=== PATIENT | male | born 1960 | race Caucasian/White ===

== ENCOUNTER 2021-05-20 10:40 | Inpatient (IN) | payer SELFPAY ==
[2021-05-20] VITALS (35 sets, daily range): BP systolic 104–180; BP diastolic 56–91; PULSE 53–78; RESP 10–21; TEMP 36.1–36.7; O2SAT 91–100; BMI 30.4; BMI 29.1
--- NOTE | 2021-05-20 10:45 | CT_ITS ---
STUDY: CT HEAD STROKE PROTOCOL W/O CONTRAST INJECTION REASON FOR EXAM: Male, 61 years old. Neuro deficit, acute, stroke suspected RADIATION DOSAGE (If Supplied By Facility): CTDIvol = ( 44.99 ) mGy, DLP = ( and 46.73 ) mGycm TECHNIQUE: Transaxial CT imaging of the brain was performed without administration of intravenous contrast material. Individualized dose optimization techniques were used for this CT. COMPARISON: No relevant priors. FINDINGS: Normal soft tissue structures. Normal calvarium. There is mild cerebral atrophy with widening of the extra-axial spaces and ventricular dilatation. Normal white matter tracts of the cerebral hemispheres. Normal basal ganglia and thalami. Normal brainstem. Normal cerebellum. There is no intracranial hemorrhage. There are no findings of an acute ischemic infarction. Atherosclerotic calcification of the cavernous portions of the internal carotid arteries bilaterally. Normal visualized paranasal sinuses. CT/STROKE Brain/Head without Cont IMPRESSION: Chronic involutional changes of the brain. N.B. : The above Results were Read Back by Alirio Ryan MD to Samuel Mullen and understanding confirmed on 05/20/2021 10:55:42 (ET). Electronically Signed: Alirio Ryan MD at 10:56 EST , Service support ,
--- NOTE | 2021-05-20 10:45 | EKG12_ITS ---
Test Reason : STROKE ALERT Blood Pressure : / mmHG Vent. Rate : 065 BPM Atrial Rate : 065 BPM P-R Int : 166 ms QRS Dur : 088 ms QT Int : 390 ms P-R-T Axes : 052 005 038 degrees QTc Int : 405 ms Normal sinus rhythm Normal ECG Confirmed by ART MITCHELL, IMANI ([id number]), editor farm journal DUNCAN EDEN ([id number]) on 05/21/2021 1:41:42 PM Referred By: JENNIFER Confirmed By:RIC CORDOVA MD
--- NOTE | 2021-05-20 10:46 | CT_ITS ---
STUDY: CTA HEAD AND NECK WITH CONTRAST REASON FOR EXAM: Male, 61 years old. Neuro deficit, acute, stroke suspected RADIATION DOSAGE (If Supplied By Facility): CTDIvol = ( 19.78 ) mGy, DLP = ( 779.07 ) mGycm TECHNIQUE: CT angiography was performed with a multi-detector CT scanner. Data acquisition was obtained from the skull base through the vertex following intravenous administration of IV 100mL [id number]-[id number]. MIP images were reconstructed from the axial data set. Post-processing of the angiographic images was performed, with multiplanar reformation and 3D reconstruction. Individualized dose optimization techniques were used for this CT. COMPARISON: No relevant priors. FINDINGS: Normal bilateral petrous carotid arteries. There is calcified plaque formation of the right cavernous carotid artery, without a cross-sectional luminal stenosis. There is calcified plaque formation of the left cavernous carotid artery, without a cross-sectional luminal stenosis. Normal right A1 segments of the anterior cerebral artery. Normal left A1 segments of the anterior cerebral artery. Normal intact anterior communicating artery (ACOM). Normal bilateral A2 segments of the anterior cerebral arteries. Normal right M1 and M2 segments of the middle cerebral arteries, with a normal M1 bifurcation. Normal left M1 and M2 segments of the middle cerebral arteries, with a normal M1 bifurcation. Normal right posterior communicating artery (PCOM). Normal left posterior communicating artery (PCOM). Normal bilateral vertebral arteries. Normal basilar artery with a normal basilar bifurcation. The visualized bilateral superior cerebellar (SCA) arteries are normal. Normal bilateral P1, P2 and visualized P3 segments of the posterior cerebral arteries. There is no demonstrated aneurysm of the [place]. There is no demonstrated abnormality of the visualized brain. AORTIC ARCH: Normal visualized aortic arch. Normal origins of the brachiocephalic, left common carotid, and left subclavian arteries. RIGHT CAROTID ARTERIES: Normal right common carotid artery (CCA). Normal right common carotid bulb. There is mild atherosclerotic plaque formation of the origin of the right internal carotid artery with less than 50% cross sectional diameter stenosis. Normal visualized cervical portion of the right internal carotid artery. Normal origin of the right external carotid artery (ECA). LEFT CAROTID ARTERIES: Normal left common carotid artery (CCA). Normal left common carotid bulb. There is mild atherosclerotic plaque formation of the origin of the left internal carotid artery with less than 50% cross sectional diameter stenosis. Normal visualized cervical portion of the left internal carotid artery. Normal origin of the left external carotid artery (ECA). VERTEBRAL ARTERIES: Normal bilateral vertebral arteries. CT/STROKE CTA Head AND Neck W/Con IMPRESSION: Minimal calcific plaque at the origin of the right and left internal carotid arteries. N.B. : The above Results were Read Back by Alirio Ryan MD to Samuel Mullen and understanding confirmed on 05/20/2021 11:19:52 (ET). Electronically Signed: Alirio Ryan MD at 11:21 EST , Service support ,
--- NOTE | 2021-05-20 10:47 | ED.VIS.STROK ---
HPI History of Present Illness Chief Complaint: Neuro S/Sx Informant: patient and EMS Onset/Context/Timing Onset: Today Context: Sudden Onset Timing: Continuous Current Severity: Moderate Maximum Severity: Moderate Associated Symptoms Associated Symptoms: Negative for Headache, Nausea, Vomiting and Chest Pain Narrative Narrative: 61-year-old male history of hypertension reported no prior stroke or cardiac disease. Around 10 AM this morning he started having right-sided weakness and numbness and speech difficulties. The right arm and leg seem to be improving. His speech is not. Prior similar symptoms: No Recent Illness/Hospitalization: No PFSH PFSH Medical History HTN (hypertension) Home Medications lisinopril 10 mg PO DAILY 09/30/15 [History Last Taken 10/02/15 08:00] sertraline 100 mg PO DAILY 09/30/15 [History Last Taken Unknown] tramadol 100 mg PO TID 09/30/15 [History Last Taken 10/02/15 08:00] gabapentin 300 mg PO BREAKFAST 05/20/21 [History Last Taken Unknown] gabapentin 300 mg PO LUNCH 05/20/21 [History Last Taken Unknown] gabapentin 900 mg PO QHS 05/20/21 [History Last Taken Unknown] Allergy/AdvReac Type Severity Reaction Status Date / Time No Known Allergies Allergy Verified 05/20/21 10:41 Family History (Updated 05/20/21 @ 11:[address] Shiva Ham MD) Father CVA (cerebral vascular accident) Social History Smoking Status: Current every day smoker tobacco type: cigarettes ROS ROS ED ROS Narrative No recent illness reported. Review of Systems ROS Unobtainable: Denies due to encephalopathy Constitutional Constitutional ED: Denies fever(s) Eyes Eyes: Denies change in vision ENT ENT ED: Denies ear pain Cardiovascular Cardiovascular: Denies chest pain Respiratory/Chest Respiratory/Chest: Denies cough or dyspnea Gastrointestinal Gastrointestinal: Denies abdominal pain, diarrhea, nausea or vomiting Genitourinary Genitourinary ED: Denies dysuria Musculoskeletal Musculoskeletal: Denies myalgias Integumentary Denies rash Neurologic Neurologic: Denies headache(s) Psychiatric Psychiatric: Denies depression Endocrine Endocrinology: Denies polyuria Hematologic/Lymphatic Hematologic/Lymphatic: Denies easy bruising Allergic/Immunologic Allergic/Immunologic ED: Denies urticaria EXAM Physical Exam Narrative Exam Narrative: 61-year-old male brought in by squad. Evaluated in the hallway on his way to CAT scan. Initial blood pressure 180/62. Oxygen saturation 96%. H EENT exam dry reactive light extra motions are intact. No signs of trauma. No facial droop. His speech he has dysarthria. Neck nontender. Lungs are clear. Heart regular rhythm rate about 80 no murmur. Chest wall nontender. Abdomen soft nontender. Extremities he has normal rapid outsole stitcher strength bilaterally. Normal dorsi plantar flexion. Neurologically he is awake. He is alert. There is no facial droop. He has obvious dysarthria where his trouble putting his words together. They are audible. He appears to have normal motor strength of both the upper and lower extremity. His NIH score is 2. Const Vital Signs: 05/20/21 10:44 05/20/21 10:54 05/20/21 10:58 Temperature 96.9 F L Temperature Source Temporal Pulse Rate 78 69 70 Respiratory Rate 16 12 16 Blood Pressure 180/62 H 150/91 H 150/91 H Blood Pressure Mean 101 110 110 Blood Pressure Source Blood Pressure Position Blood Pressure Location Pulse Ox 96 96 Oxygen Delivery Method Room Air Room Air Oxygen Flow Rate (L/min) 05/20/21 10:59 05/20/21 11:05 05/20/21 11:07 Temperature 96.9 F L Temperature Source Temporal Pulse Rate 67 65 Respiratory Rate 17 16 Blood Pressure 148/91 H 148/91 H Blood Pressure Mean 110 110 Blood Pressure Source Monitor Blood Pressure Position Sitting Blood Pressure Location Right Arm Pulse Ox 100 Oxygen Delivery Method Nasal Cannula Room Air Nasal Cannula Oxygen Flow Rate (L/min) 2 2 Positive well nourished and well developed; Negative for cachectic, contractures or unkempt General Appearance ED: well developed; Negative for unkempt, cachectic, contractures or NAD Nutritional Appearance: Negative for cachectic HEENT Reports moist mucous membranes atraumatic; Negative for trauma Eyes PERRL and EOMs intact bilaterally Neck no lymphadenopathy, supple and no JVD General: Negative for tenderness Chest Wall inspection of chest normal and palpation of chest normal Resp normal respiratory effort and clear to auscultation bilaterally Auscultation: Negative for rales, rhonchi or wheezes Cardio no murmurs Rate: regular rate Rhythm: regular rhythm Heart Sounds: S1 normal and S2 normal GI normal to inspection, nondistended, normoactive bowel sounds, soft to palpation, non-tender, non-distended and no masses Inspection: Negative for abdominal distention Auscultation: normoactive bowel sounds Palpation: Negative for tender, guarding or rebound tenderness present Back/Spine no CVA tenderness General Back: Negative for CVA tenderness Cervical Spine: Negative for cervical spine tenderness Thoracic Spine / Upper Back: Negative for thoracic spinal tenderness Extremity Extremity Narrative: Normal motor strength of both upper and lower extremities. Normal strength. No drift. Bilateral equal symmetrical rapid outsole stitcher. Normal dorsi and plantar flexion. Able to lift either arm or leg off the bed. He does have subjective decreased sensation of the right arm. But has 5 out of 5 rapid outsole stitcher strength. General Extremety ED: Negative for deformity, edema or tenderness General Extremity: Negative for deformity or edema Neuro oriented x3 and No no sensory deficits noted Neuro Narrative: Right arm paresthesia. Sensorium / Orientation: alert, oriented to person, oriented to place and oriented to time; Negative for orientation impaired, confused, lethargic or stuporous Speech: Negative for speech normal Motor Exam: strength 5/5 throughout; Negative for general weakness or strength abnormal Psych mental status grossly normal Appearance: Negative for unkempt Attitude: No agitated Mood & Affect: Negative for depressed, anxious or tearful Skin no wounds General Skin Exam: Negative for jaundice Lesions: no lesions Rashes: no rashes and No rashes noted Trauma: Negative for abrasion or laceration STROKE Vital Signs/Narrative: Vital Signs Temp Pulse Resp BP Pulse Ox 05/20/21 11:07 96.9 F L 65 16 148/91 H 100 05/20/21 11:05 67 17 148/91 H 05/20/21 10:58 70 16 150/91 H 05/20/21 10:54 96.9 F L 69 12 150/91 H 96 05/20/21 10:44 78 16 180/62 H 96 Initial blood pressure 180/62 currently 150/91. Sat 96% on room air no hypoxia. Patient with acute strokelike symptoms started around 10 AM. He is being evaluated by the [facility] neurologist at this time. Both myself and the radiologist who reviewed the CAT scan there is no acute bleed. The radiologist does not see any acute strokelike findings at this time. I believe the patient is a good candidate for tPA due to the onset of his symptoms and his significant speech deficit at this time. Awaiting determination by the [facility] neurologist. MDM MDM MDM Narrative Medical decision making narrative: 61-year-old with acute stroke initially with weakness of the right side which is resolved still has subjective paresthesia to his right upper extremity and significant dysarthria. His NIH score currently is about a 3. He has no motor loss. [facility] is evaluating him at this time and I believe that he will be a tPA candidate. Patient was treated with IV tPA about 27 minutes after arrival. He is showing some signs of improvement. Currently still has speech difficulty but it seems like it is improving. His motor strength is back to baseline and that was prior to the tPA also. The CAT scans been read by the radiologist as no acute abnormality and that was done prior to the tPA. We are awaiting the CTA results and the rest of the labs. I have already spoken to the hospitalist and the patient will be admitted to the ICU. Lab Data Attestation: I reviewed the patient's lab results. Lab results narrative: CBC white count of 7. Hemoglobin 15.6. Platelets 207. PT, INR and PTT normal. Electrolytes unremarkable notable for normal BUN and creatinine. Troponin 29. Patient will be transported CTA of the brain no acute abnormality. CTA head and neck right and left internal carotid calcific plaques that are described as minimal. Labs: Laboratory Results - last 24 hr 05/20/21 05/20/21 05/20/21 10:35 10:35 10:35 WBC 7.0 RBC 4.67 Hgb 15.6 Hct 45.0 MCV 96.4 H MCH 33.4 H MCHC 34.7 RDW Std Deviation 48.9 H RDW Coeff of Sara 13.8 Plt Count 207 MPV 9.5 Immature Gran % (Auto) 0.600 Neut % (Auto) 51.5 Lymph % (Auto) 35.7 [place] % (Auto) 8.9 Eos % (Auto) 2.7 Baso % (Auto) 0.6 Absolute Neuts (auto) 3.6 Absolute Lymphs (auto) 2.49 Nucleated RBC % 0 PT 12.7 INR 1.0 APTT 32.7 Sodium 136 Potassium 4.0 Chloride 106 Carbon Dioxide 26.0 Anion Gap 4 L BUN 11 Creatinine 1.14 Estim Creat Clear Calc 75.63 Est GFR (MDRD) Af Amer 84 Est GFR (MDRD) Non-Af 70 BUN/Creatinine Ratio 9.6 L Glucose 95 Calcium 8.8 Troponin I High Sens 29 Radiography Diagnostic Testing: Clinical Impression(s) from Imaging Studies Head/Neck CTA 05/20/21 10:46 IMPRESSION: Minimal calcific plaque at the origin of the right and left internal carotid arteries. N.B. : The above Results were Read Back by Alirio Ryan MD to Samuel Mullen and understanding confirmed on 05/20/2021 11:19:52 (ET). Electronically Signed: Alirio Ryan MD at 11:21 EST , Service support , ADDENDUM: 05/20/21 1128 IMPRESSION: Minimal calcific plaque at the origin of the right and left internal carotid arteries. N.B. : The above Results were Read Back by Alirio Ryan MD to Samuel Mullen and understanding confirmed on 05/20/2021 11:19:52 (ET). Electronically Signed: Alirio Ryan MD at 11:21 EST , Service support , Chest X-Ray 05/20/21 11:16 IMPRESSION: No acute abnormality is seen. Electronically Signed: Alirio Ryan MD at 11:45 EST , Service support , Rhythm Strip Rhythm Strip: Sinus Rhythm Rate: 65 Ectopy: None EKG Initial EKG: Attestation: I personally reviewed and interpreted this EKG as follows: Interpretation: Sinus Rhythm and No Acute Injury Pattern Comments: Normal sinus rhythm rate of 65 no acute signs of Or ischemia. Prior EKG tracings: not available for review Stroke Documentation Questions Stroke Team Activated: Yes Reviewed Inclusion/Exclusion criteria: Yes Was Patient considered for Endovascular Intervention?: No IV Alteplase (t-PA) Administered: Yes No contraindications for IV Alteplase (t-PA) administration.: No Alteplase (t-PA) risks, benefits, alternative discussed: Yes Not given: Patient refusal: No Critical Care Time Critical Care Time: Yes Critical care time (excluding procedures): 30-74 minutes, Including time spent:, Discussing w/Patient &/or Family/Warm In Worker, Discussing w/Consultants, Arranging Admission or Transfer, Performing Direct Patient Care at Bedside and - (31 min) Discharge Plan Dx/Rx/DC Orders Clinical Impression: Acute stroke due to ischemia, History of primary hypertension Disposition Disposition: Acute Care Hospital [facility]
[2021-05-20] MEDS: 0.9% Normal Saline 1,000 ML 999 ML IV (11:00)
[2021-05-20 11:05] LABS: Absolute Lymphocyte Count 2.49 X10^3/uL (0.83-4.51); Absolute Neutrophil Count 3.6 X10^3/uL (2.0-7.7); Basophil# 0.04 X10^3/uL; Basophil% 0.6 % (0-1); Eosinophil# 0.19 X10^3/uL; Eosinophils% 2.7 % (0-5); Hemoglobin 15.6 g/dL (13.0-16.5); Lymphocyte # 2.49 X10^3/ul (0.83-4.51); Lymphocyte % 35.7 % (19-41); Mean Corp Hgb Conc 34.7 g/dL (32-36); Mean Corpuscular Hgb 33.4 pg (27.0-32.0); Mean Corpuscular Volume 96.4 fL (80-94); Mean Platelet Vol. 9.5 fl (6.2-12.0); Monocyte# 0.62 X10^3/uL; Monocyte% 8.9 % (0-10); NRBC Flagged by Analyzer 0 % (0-5); Neutrophil # 3.59 X10^3/uL (2.7-7.7); Neutrophil % 51.5 % (47-70); Platelet Count 207 K/mm3 (150-450); RBC Distribution Width CV 13.8 % (11.6-14.6); RBC Distribution Width SD 48.9 fl (35.1-43.9); Red Blood Count 4.67 M/mm3 (4.6-6.2)
--- NOTE | 2021-05-20 11:16 | RAD_ITS ---
STUDY: X-RAY CHEST REASON FOR EXAM: Male, 61 years old. Neuro deficit, acute, stroke suspected TECHNIQUE: Single AP portable view of the chest. COMPARISON: None. FINDINGS: EKG electrodes are seen. The lungs are clear and expanded. There is no demonstrated pleural abnormality. Normal size heart. Normal mediastinum and elvia. Normal visualized pulmonary arteries. Normal visualized aortic arch and descending thoracic aorta. There are diffuse degenerative changes of the visualized thoracic spine. Normal visualized ribs, clavicles, and shoulders. There is no demonstrated abnormality of the visualized soft tissue structures of the upper abdomen. RAD/Chest 1 View IMPRESSION: No acute abnormality is seen. Electronically Signed: Alirio Ryan MD at 11:45 EST , Service support ,
--- NOTE | 2021-05-20 11:22 | NURSING ---
DR SARAH FRANKEL
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
--- NOTE | 2021-05-20 11:37 | NURSING ---
ICU 9 KITTOE ACUTE CVA
--- NOTE | 2021-05-20 11:38 | CHAPLAIN ---
Type of Pastoral Visit ___ Initial Visit ___ Follow-up Visit ___ On-call Visit ___ General Patient Visit ___ Spiritual Assessment ___ Family Conference ___ Bereavement _x__ Rapid Response ___ Code Blue ___ Other (describe below) Pastoral Care Referral From ___ Patient ___ Family ___ Nurse ___ Physician ___ Supervisor Chemical ___ Cupola Melter _x__ Other (describe below) Sacrament/Intervention ___ Active listening ___ Anointing ___ Mandaen ___ Bereavement ___ Communion ___ Dea exploration ___ ___ Life review _x__ Prayer ___ Reconciliation ___ Sacrament of Sick _x__ Supportive presence ___ Wedding ___ Other (describe below) Pastoral Comments came for the stroke alert in ED; spouse of patient was in room as pt was in CT for scan; spouse admits to anxiety and welcomed the support and prayer; gave presence until patient returned to room at which time the medical team continued with further evaluations
[2021-05-20 11:48] LABS: Partial Thromboplast Time 32.7 Seconds (24.1-36.2); Prothrombin Time (Protime)PT. 12.7 SECONDS (11.7-14.9)
[2021-05-20 11:50] LABS: Anion Gap 4 (5-15); BUN 11 mg/dL (7-18); BUN/Creat Ratio 9.6 RATIO (10-20); Calcium,Total 8.8 mg/dL (8.5-10.1); Chloride 106 mmol/L (98-107); Creatinine, Serum 1.14 mg/dL (0.70-1.30); EST Glomerular Filtration Rate 70 mL/min (>60); Est Glom Filt Rate - Afr Amer 84 mL/min (>60); Estimated Creatinine Clearance 75.63 ml/min; Glucose 95 mg/dL (74-106); Sodium Level 136 mmol/L (136-145); Troponin-I HS 29 pg/mL (3.0-78.0)
--- NOTE | 2021-05-20 12:41 | EX.PCM.CONCC ---
Assessment & Plan Assessment/Plan (1) Acute stroke due to ischemia: PLAN: RECOMMENDATIONS: 1. Continue routine post tPA monitoring in ICU. 2. Treat blood pressures in excess of 180/105. 3. Obtain echocardiogram. 4. MRI brain tomorrow. 5. PT/OT evaluations tomorrow afternoon. 6. Dysphagia screen with dietary advancement. IMPRESSIONS: 1. Acute CVA status post tPA The patient was admitted to the hospital on May 20 with findings concerning for acute ischemic CVA. There was no large vessel occlusion identified on CTA head. The patient did receive tPA. Plan to continue monitoring post tPA protocol. Allow for permissive hypertension. Treat for a systolic blood pressure greater than 180 or diastolic pressure greater than 105. Obtain follow-up MRI tomorrow afternoon. Performed bedside swallow evaluation. Obtain echocardiogram. 2. Chronic tobacco dependency I personally spent 3 minutes discussing the deleterious effects of continued tobacco use with the patient, including modalities which could utilize to achieve a smoke-free lifestyle. Nicotine replacement therapy can be utilized while admitted to the hospital. 3. History of hypertension/neuropathy Complicates care, management, recovery and prognosis. Hold scheduled antihypertensives for now. Physical therapy evaluation tomorrow. This note was generated with [employer] dictation software. It may contain incorrect words, spelling, and punctuation that were not noted in checking the note before signing. HPI Consult Data Date of Consult: 05/20/21 HPI Narrative Reason for Consultation: Acute CVA status post tPA HPI Narrative: The patient is a 61-year-old male, with a history as outlined below, who presented to the emergency department on May 20 with dysarthria and right-sided weakness. The patient's medical history is significant for chronic tobacco dependency and hypertension. 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 He reported being quite tired and hungry. He does report that he typically smokes 3 cigars/day. On presentation to the emergency department, the patient was noted to be afebrile but was hypertensive. Laboratory evaluation demonstrated no evidence for leukocytosis. Coagulation profile was within normal limits. Chemistry profile was unremarkable. CT head was negative. CTA head and neck showed no evidence of a large vessel occlusion. The patient was subsequently treated with tPA. He was then admitted to the medical intensive care unit for further management. PENDING SALE TO [facility] Medical History (Updated 05/20/21 @ 13:44 by Berenice Fitzgerald) Back pain due to injury Chronic pain Depression HTN (hypertension) Injury of head and neck Smoker Stroke/cerebrovascular accident (05/20/21) Home Medications lisinopril 10 mg PO DAILY 09/30/15 [History Last Taken 10/02/15 08:00] sertraline 100 mg PO DAILY 09/30/15 [History Last Taken Unknown] tramadol 100 mg PO TID 09/30/15 [History Last Taken 10/02/15 08:00] gabapentin 300 mg PO BREAKFAST 05/20/21 [History Last Taken Unknown] gabapentin 300 mg PO LUNCH 05/20/21 [History Last Taken Unknown] gabapentin 900 mg PO QHS 05/20/21 [History Last Taken Unknown] Allergy/AdvReac Type Severity Reaction Status Date / Time No Known Allergies Allergy Verified 05/20/21 10:41 Family History (Updated 05/20/21 @ 11:[address] Shiva Ham MD) Father CVA (cerebral vascular accident) Social History Smoking Status: Current every day smoker tobacco type: cigars ROS Constitutional Constitutional: Denies chills, fatigue or fever(s) Eyes Eyes: Denies blurry vision or change in vision ENT HEENT: Denies dizziness or headache(s) Cardiovascular Cardiovascular: Denies chest pain, dizziness or dyspnea Respiratory/Chest Respiratory/Chest: Denies cough or dyspnea Gastrointestinal Gastrointestinal: Denies abdominal pain, diarrhea, nausea or vomiting Genitourinary Genitourinary: Denies difficulty urinating Musculoskeletal Musculoskeletal: Reports back pain Integumentary Integumentary: Denies lesions, rash or skin ulcer Neurologic Neurologic: Reports abnormal speech and sensory deficit Psychiatric Psychiatric: Denies anxiety or depression Endocrine Endocrinology: Reports fatigue Hematologic/Lymphatic Hematologic/Lymphatic: Denies easy bleeding or easy bruising Physical Exam Const alert, oriented x3 and no apparent distress General Appearance: cooperative HEENT normocephalic, head/scalp atraumatic and moist oral mucous membranes Eyes PERRL, EOMs intact bilaterally and conjunctivae normal Neck supple General: trachea midline Chest inspection of chest normal Resp normal respiratory effort Auscultation: Negative for rales, rhonchi or wheezes Cardio regular rate and regular rhythm GI normal to inspection, nondistended, normoactive bowel sounds Extremity no clubbing, cyanosis or edema Skin no rashes or lesions noted Neuro no focal motor deficits Speech: expressive aphasia Psych cooperative and affect normal Lab / Micro Data Result Diagrams: 05/20/21 10:35 05/20/21 10:35 Labs: Laboratory Results - last 24 hr 05/20/21 10:35: WBC 7.0, RBC 4.67, Hgb 15.6, Hct 45.0, MCV 96.4 H, MCH 33.4 H, MCHC 34.7, RDW Std Deviation 48.9 H, RDW Coeff of Sara 13.8, Plt Count 207, MPV 9.5, Immature Gran % (Auto) 0.600, Neut % (Auto) 51.5, Lymph % (Auto) 35.7, [place] % (Auto) 8.9, Eos % (Auto) 2.7, Baso % (Auto) 0.6, Absolute Neuts (auto) 3.6, Absolute Lymphs (auto) 2.49, Nucleated RBC % 0 05/20/21 10:35: PT 12.7, INR 1.0, APTT 32.7 05/20/21 10:35: Sodium 136, Potassium 4.0, Chloride 106, Carbon Dioxide 26.0, Anion Gap 4 L, BUN 11, Creatinine 1.14, Estim Creat Clear Calc 75.63, Est GFR (MDRD) Af Amer 84, Est GFR (MDRD) Non-Af 70, BUN/Creatinine Ratio 9.6 L, Glucose 95, Calcium 8.8, Troponin I High Sens 29 Rhythm Strip Rhythm Strip: Sinus Rhythm Rate: 65 Ectopy: None Radiology Impression Brain CT 05/20/21 10:45 IMPRESSION: Chronic involutional changes of the brain. N.B. : The above Results were Read Back by Alirio Ryan MD to Samuel Mullen and understanding confirmed on 05/20/2021 10:55:42 (ET). Electronically Signed: Alirio Ryan MD at 10:56 EST , Service support , Head/Neck CTA 05/20/21 10:46 IMPRESSION: Minimal calcific plaque at the origin of the right and left internal carotid arteries. N.B. : The above Results were Read Back by Alirio Ryan MD to Samuel Mullen and understanding confirmed on 05/20/2021 11:19:52 (ET). Electronically Signed: Alirio Ryan MD at 11:21 EST , Service support , ADDENDUM: 05/20/21 1128 IMPRESSION: Minimal calcific plaque at the origin of the right and left internal carotid arteries. N.B. : The above Results were Read Back by Alirio Ryan MD to Samuel Mullen and understanding confirmed on 05/20/2021 11:19:52 (ET). Electronically Signed: Alirio Ryan MD at 11:21 EST , Service support , Chest X-Ray 05/20/21 11:16 IMPRESSION: No acute abnormality is seen. Electronically Signed: Alirio Ryan MD at 11:45 EST , Service support , Charges/Coding Visit Charges Inpatient E&M: 08009 Init Hosp L3 Behavior Interventions Behavior Intervention: 76169 Smoking Cessation 3-10 min
[2021-05-20] MEDS: Gabapentin 300 MG Capsule PO (13:59)
[2021-05-20] MEDS: traMADol 50 MG Tablet 100 MG PO ×2 (13:59→21:00)
[2021-05-20] MEDS: 0.9% Normal Saline 1,000 ML 100 ML IV ×2 (13:59→23:04)
--- NOTE | 2021-05-20 14:08 | EKG12_ITS ---
Test Reason : CHEST PAIN Blood Pressure : / mmHG Vent. Rate : 058 BPM Atrial Rate : 058 BPM P-R Int : 170 ms QRS Dur : 096 ms QT Int : 408 ms P-R-T Axes : 055 011 042 degrees QTc Int : 400 ms Sinus bradycardia Otherwise normal ECG When compared with ECG of 20-MAY-2021 11:12, MANUAL COMPARISON REQUIRED, DATA IS UNCONFIRMED Confirmed by ART MITCHELL, IMANI ([id number]), brands editor DUNCAN EDEN ([id number]) on 05/22/2021 8:21:33 AM Referred By: Chris HARTMAN Confirmed By:RIC CORDOVA MD
[2021-05-20 14:39] LABS: Troponin-I HS 81 pg/mL (3.0-78.0)
--- NOTE | 2021-05-20 15:53 | ED.RN ---
PT TPA BOLUS WAS GIVEN THROUGH [facility]. TPA INFUSION WAS GIVEN THROUGH [facility] IV.
[2021-05-20] MEDS: Gabapentin 300 MG Capsule 900 MG PO (21:01)
[2021-05-21] VITALS (26 sets, daily range): BP systolic 107–161; BP diastolic 54–98; PULSE 48–64; RESP 10–19; TEMP 36.5–36.7; O2SAT 92–99; BMI 29.1
--- NOTE | 2021-05-21 03:23 | NURSING ---
attempted multiple times to draw off both iv sites but unable to get am blood draw.
[2021-05-21] MEDS: traMADol 50 MG Tablet 100 MG PO ×3 (05:04→20:43)
--- NOTE | 2021-05-21 07:10 | PCM.PN.INT ---
Assessment & Plan Assessment/Plan (1) Acute stroke due to ischemia: PLAN: RECOMMENDATIONS: 1. Continue routine post tPA monitoring in ICU. 2. Treat blood pressures in excess of 180/105. 3. Obtain echocardiogram. 4. MRI brain today. 5. PT/OT evaluations today. 6. Pending completion of repeat head imaging, the patient is stable for transfer out of the intensive care unit. 7. Will sign off from a critical care perspective. Please call with any additional questions. IMPRESSIONS: 1. Acute CVA status post tPA The patient was admitted to the hospital on May 20 with findings concerning for acute ischemic CVA. There was no large vessel occlusion identified on CTA head. The patient did receive tPA. Plan to continue monitoring post tPA protocol. Allow for permissive hypertension. Treat for a systolic blood pressure greater than 180 or diastolic pressure greater than 105. Obtain follow-up MRI today. Obtain echocardiogram. 2. Chronic tobacco dependency Tobacco cessation counseling was provided. Continue nicotine replacement therapy. 3. History of hypertension/neuropathy Complicates care, management, recovery and prognosis. Hold scheduled antihypertensives for now. Physical therapy evaluation today. This note was generated with [employer] dictation software. It may contain incorrect words, spelling, and punctuation that were not noted in checking the note before signing. Subjective Subjective The patient was seen and examined at the bedside this morning. Events from the last 24 hours have been reviewed. The patient is currently afebrile, hemodynamically stable and maintaining appropriate oxygen saturations on room air. No overnight issues were identified by the nursing staff. Objective Data Objective Data The patient's most recent lab work, culture data and imaging studies have all been personally reviewed. Vital Signs: Vital Signs Temp Pulse Resp BP Pulse Ox 98 F 57 L 18 121/62 H 92 05/21/21 03:00 05/21/21 06:10 05/21/21 06:10 05/21/21 06:10 05/21/21 06:10 Oxygen Flow Rate (L/min) 2 Oxygen Delivery Method Room Air Weight: 98.3 kg Body Mass Index (BMI) 29.1 Intake & Output: Intake and Output for Last 24 Hours 05/19/21 05/20/21 05/21/21 23:59 23:59 23:59 Intake Total 2429.33 / 2489.33 300 / 300 Output Total 1000 / 1000 900 / 900 Balance 1429.33 / 1489.33 -600 / -600 Lab / Micro Data Attestation: I reviewed the patient's lab results. Result Diagrams: 05/21/21 13:25 05/21/21 13:25 Labs: Laboratory Results - last 24 hr 05/20/21 10:35: WBC 7.0, RBC 4.67, Hgb 15.6, Hct 45.0, MCV 96.4 H, MCH 33.4 H, MCHC 34.7, RDW Std Deviation 48.9 H, RDW Coeff of Sara 13.8, Plt Count 207, MPV 9.5, Immature Gran % (Auto) 0.600, Neut % (Auto) 51.5, Lymph % (Auto) 35.7, [place] % (Auto) 8.9, Eos % (Auto) 2.7, Baso % (Auto) 0.6, Absolute Neuts (auto) 3.6, Absolute Lymphs (auto) 2.49, Nucleated RBC % 0 05/20/21 10:35: PT 12.7, INR 1.0, APTT 32.7 05/20/21 10:35: Sodium 136, Potassium 4.0, Chloride 106, Carbon Dioxide 26.0, Anion Gap 4 L, BUN 11, Creatinine 1.14, Estim Creat Clear Calc 75.63, Est GFR (MDRD) Af Amer 84, Est GFR (MDRD) Non-Af 70, BUN/Creatinine Ratio 9.6 L, Glucose 95, Calcium 8.8, Troponin I High Sens 29 05/20/21 14:15: Troponin I High Sens 81 H Radiography Diagnostic Testing: Radiology Impression Brain CT 05/20/21 10:45 IMPRESSION: Chronic involutional changes of the brain. N.B. : The above Results were Read Back by Alirio Ryan MD to Samuel Mullen and understanding confirmed on 05/20/2021 10:55:42 (ET). Electronically Signed: Alirio Ryan MD at 10:56 EST , Service support , Head/Neck CTA 05/20/21 10:46 IMPRESSION: Minimal calcific plaque at the origin of the right and left internal carotid arteries. N.B. : The above Results were Read Back by Alirio Ryan MD to Samuel Mullen and understanding confirmed on 05/20/2021 11:19:52 (ET). Electronically Signed: Alirio Ryan MD at 11:21 EST , Service support , ADDENDUM: 05/20/21 1128 IMPRESSION: Minimal calcific plaque at the origin of the right and left internal carotid arteries. N.B. : The above Results were Read Back by Alirio Ryan MD to Samuel Mullen and understanding confirmed on 05/20/2021 11:19:52 (ET). Electronically Signed: Alirio Ryan MD at 11:21 EST , Service support , Chest X-Ray 05/20/21 11:16 IMPRESSION: No acute abnormality is seen. Electronically Signed: Alirio Ryan MD at 11:45 EST , Service support , Rhythm Strip Rhythm Strip: Sinus Rhythm Rate: 65 Ectopy: None Physical Exam Const alert, oriented x3 and no apparent distress General Appearance: cooperative HEENT normocephalic, head/scalp atraumatic and moist oral mucous membranes Eyes PERRL, EOMs intact bilaterally and conjunctivae normal Neck supple General: trachea midline Chest inspection of chest normal Resp normal respiratory effort Auscultation: Negative for rales, rhonchi or wheezes Cardio regular rate and regular rhythm GI normal to inspection, nondistended, normoactive bowel sounds Extremity no clubbing, cyanosis or edema Skin no rashes or lesions noted Neuro CN's II-XII intact bilaterally, moves all extremities and no focal motor deficits Psych cooperative and affect normal Charges/Coding Visit Charges Inpatient E&M: 51171 Subs Hosp L2
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
[2021-05-21] MEDS: 0.9% Normal Saline 1,000 ML 100 ML IV ×2 (08:04→20:44)
[2021-05-21] MEDS: Gabapentin 300 MG Capsule PO ×2 (08:05→13:33)
[2021-05-21] MEDS: Sertraline 100 MG Tablet PO (10:05)
[2021-05-21] MEDS: Atorvastatin Calcium 40 MG Tablet PO ×2 (10:06→20:44)
--- NOTE | 2021-05-21 10:28 | CASEMGMT ---
Social Work SW to room to meet with patient for initial assessment. SW introduced self and role at [facility]. Pt voices understanding and consents to assessment at this time. Pt resting in bed in no distress at this time. Pt is A/O and answers all questions appropriately. Care providers, pharmacy, and demographics verified. Pt does have some aphasia but is able to work through it and have conversation with SW. PCP: Pratik Specialists: none Preferred Pharmacy: [facility] Insurance: None. Pt states he started a new job recently and insurance coverage starts 60 days after employment begins. Pt states he is on day 50 of new job. Prescription Benefit: No Living Will/HPOA: Pt states he has a living will and HCPOA naming his Nancy Jacinto. Pt is aware that documents are not on file at [facility] LNOK: , Nancy Jacinto Living Arrangements: Pt and live in a 3 story home with first floor set up and 2 steps to enter. Pt was independent in all care needs prior to hospitalization. 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 Transportation: Pt and can transport DME: Pt has a cane, walker and shower chair at home but had not been using any devices. HHC/SNF: none in the past Mental Health History: pt denies Substance use history: Pt admits to substance abuse in the 1979's but not currently. Pt does smoke. PLAN: Pt wishes to return home and states has no concerns with going home at time of discharge. CHRISTINA and RNCM will follow for appropriate discharge planning once pt has been seen by therapy. Pt insurance has not started at this time which will be a barrier to discharge planning. CHRISTINA spoke with pt regarding finances and pt has no concerns at this time. Works multimedia artist, waiting on insurance to start. Pt denies needs for financial resources. NELIDA Galicia
--- NOTE | 2021-05-21 10:30 | MRI_ITS ---
STUDY: MRI BRAIN WITHOUT CONTRAST REASON FOR EXAM: Male, 61 years old. CVA -- MRI 24 hours after IV alteplase TECHNIQUE: Standardized multiplanar fat and water weighted pulse sequences were obtained. COMPARISON: CT 05/30/2021 FINDINGS: There is mild cerebral atrophy with widening of the extra-axial spaces and ventricular dilatation. There are a limited number of small white matter hyperintensities, distributed throughout the deep white matter tracts of the cerebral hemispheres, consistent with mild chronic white matter ischemic changes. Hyperintensity in the cortex of the left parietal lobe demonstrates restricted diffusion consistent with an acute infarct. Normal T2* images of the brain without demonstrated susceptibility artifact. There is no demonstrated hemosiderin stain. Normal bilateral basal ganglia. Normal thalami. There is no extra-axial fluid accumulation. Normal flow voids within the major intracranial circulation suggesting patency by spin echo criteria. Normal sella turcica, pituitary gland, infundibular stalk, optic chiasm and hypothalamus. Normal tectal plate and pineal gland. Normal midbrain, loco and medulla. Normal cerebellum. Normal basal cisterns. Normal bilateral temporal bones. Normal bilateral internal auditory canals. No demonstrated orbital abnormality, within the constraints of a routine brain study. Normal visualized paranasal sinuses. Normal calvarium and skull base. Normal visualized soft tissue structures. Normal visualized upper cervical spine. MRI/Brain without Contrast IMPRESSION: Involutional changes of the brain, as described above. Acute infarct of the cortex of the left parietal lobe. Electronically Signed: Octavio Harrell MD at 13:03 EST Tel , Service support ,
--- NOTE | 2021-05-21 10:44 | CASEMGMT ---
Social Work Pt presenting with stroke. PHQ9 depression screen completed with score of 06/04 indicating minimal depression. No referral made at this time. Pt updated on correlation between stroke and depression and pt encouraged to be mindful of mood and speak to physician if depression worsens. Pt expresses understanding. NELIDA Galicia
--- NOTE | 2021-05-21 10:52 | CASEMGMT ---
Social Work Pt states he does have a living will and Health Care POA naming his Nancy Jacinto. Pt is aware that the documents are not on file at [facility]. NELIDA Galicia
--- NOTE | 2021-05-21 12:37 | NURSING ---
PT TOLERATED MRI WELL. TRANSPORTED BACK TO ICU BY THIS RN. REPORT TO YULI ROSALES.
[2021-05-21 13:33] LABS: Absolute Lymphocyte Count 3.18 X10^3/uL (0.83-4.51); Absolute Neutrophil Count 4.1 X10^3/uL (2.0-7.7); Basophil# 0.04 X10^3/uL; Basophil% 0.5 % (0-1); Eosinophil# 0.21 X10^3/uL; Eosinophils% 2.6 % (0-5); Hematocrit 42.4 % (40-54); Hemoglobin 14.8 g/dL (13.0-16.5); Lymphocyte # 3.18 X10^3/ul (0.83-4.51); Lymphocyte % 38.9 % (19-41); Mean Corp Hgb Conc 34.9 g/dL (32-36); Mean Corpuscular Hgb 33.6 pg (27.0-32.0); Mean Corpuscular Volume 96.4 fL (80-94); Mean Platelet Vol. 9.9 fl (6.2-12.0); Monocyte# 0.67 X10^3/uL; Monocyte% 8.2 % (0-10); NRBC Flagged by Analyzer 0 % (0-5); Neutrophil # 4.05 X10^3/uL (2.7-7.7); Neutrophil % 49.6 % (47-70); Platelet Count 191 K/mm3 (150-450); RBC Distribution Width CV 13.6 % (11.6-14.6); RBC Distribution Width SD 48.5 fl (35.1-43.9); White Blood Count 8.2 K/mm3 (4.4-11.0)
[2021-05-21 13:45] LABS: Anion Gap 2 (5-15); BUN 14 mg/dL (7-18); BUN/Creat Ratio 14.6 RATIO (10-20); Calcium,Total 8.7 mg/dL (8.5-10.1); Chloride 113 mmol/L (98-107); Creatinine, Serum 0.96 mg/dL (0.70-1.30); EST Glomerular Filtration Rate 85 mL/min (>60); Est Glom Filt Rate - Afr Amer 103 mL/min (>60); Estimated Creatinine Clearance 89.81 ml/min; Glucose 91 mg/dL (74-106); Potassium 4.2 mmol/L (3.5-5.1); Sodium Level 140 mmol/L (136-145)
--- NOTE | 2021-05-21 15:00 | NURSING ---
Code Jacquie called. Patient aggressive with nursing staff..yelling and jumped out of bed at Jose Alejandro Paris RN. Patient heard from hallway yelling at staff. Patient then sat in a chair, ripped multiple leads/wires off. Patient stating he is going through tramadol withdraw. This nurse explained to the patient he is getting all his tramadol medication that is ordered. Verified with patient and his wh was on the phone home dosage and ordered dosage correct. Patient continues to be argumentative and saying he is going through withdraw and we need to do something or he will leave. Dr. Ham notified and orders given for Ativan 1mg IV X1. Patient agreed to get back into bed and allowed this RN to replace leads/wires. Will continue to monitor.
--- NOTE | 2021-05-21 15:23 | CHAPLAIN ---
Type of Pastoral Visit ___ Initial Visit ___ Follow-up Visit ___ On-call Visit _x__ General Patient Visit ___ Spiritual Assessment ___ Family Conference ___ Bereavement ___ Rapid Response ___ Code Blue ___ Other (describe below) Pastoral Care Referral From ___ Patient _x__ Family ___ Nurse ___ Physician ___ Market Development Trainer ___ Study Coordinator ___ Other (describe below) Sacrament/Intervention _x__ Active listening ___ Anointing ___ Anglican ___ Bereavement ___ Communion ___ Dea exploration ___ _x__ Life review _x__ Prayer ___ Reconciliation ___ Sacrament of Sick _x__ Supportive presence ___ Wedding ___ Other (describe below) Pastoral Comments patient was seen yesterday briefly during stroke alert; spouse was telling staff how they appreciated deboner support and so this deboner returned to do follow up; pt and spouse express thanks and explain situation and the improvement already seen since the stroke; pt welcomes presence and prayer later this afternoon this deboner was on ICU for another patient when a code crystal was called on this patient; went to room as did many other staff; RN was attempting to calm the patient down; this deboner did not interact with the patient at this time as many staff had appeared to assist; the patient was contained in room with crystal action; stayed in hallway for a period of time to observe and listen for any further concern; no further confrontations
[2021-05-21] MEDS: LORazepam 2 MG/ML Syringe 1 MG IV (15:27)
[2021-05-21] MEDS: Gabapentin 300 MG Capsule 900 MG PO (20:43)
[2021-05-22] VITALS (8 sets, daily range): BP systolic 102–139; BP diastolic 63–87; PULSE 52–62; RESP 15–18; TEMP 36.6–36.7; O2SAT 95–96; BMI 29.1
[2021-05-22 04:58] LABS: Absolute Neutrophil Count 4.9 X10^3/uL (2.0-7.7); Basophil# 0.05 X10^3/uL; Basophil% 0.5 % (0-1); Eosinophil# 0.27 X10^3/uL; Eosinophils% 2.9 % (0-5); Hematocrit 41.7 % (40-54); Hemoglobin 14.4 g/dL (13.0-16.5); Lymphocyte % 37.2 % (19-41); Mean Corp Hgb Conc 34.5 g/dL (32-36); Mean Corpuscular Hgb 32.9 pg (27.0-32.0); Mean Corpuscular Volume 95.2 fL (80-94); Monocyte# 0.66 X10^3/uL; NRBC Flagged by Analyzer 0 % (0-5); Neutrophil # 4.89 X10^3/uL (2.7-7.7); Neutrophil % 52.1 % (47-70); Platelet Count 200 K/mm3 (150-450); RBC Distribution Width CV 13.5 % (11.6-14.6); RBC Distribution Width SD 47.5 fl (35.1-43.9); Red Blood Count 4.38 M/mm3 (4.6-6.2); White Blood Count 9.4 K/mm3 (4.4-11.0)
[2021-05-22 05:18] LABS: Anion Gap 4 (5-15); BUN 14 mg/dL (7-18); BUN/Creat Ratio 15.3 RATIO (10-20); Calcium,Total 8.5 mg/dL (8.5-10.1); Chloride 112 mmol/L (98-107); Creatinine, Serum 0.92 mg/dL (0.70-1.30); EST Glomerular Filtration Rate 89 mL/min (>60); Est Glom Filt Rate - Afr Amer 108 mL/min (>60); Estimated Creatinine Clearance 93.72 ml/min; Glucose 87 mg/dL (74-106); Potassium 4.3 mmol/L (3.5-5.1); Sodium Level 142 mmol/L (136-145)
[2021-05-22] MEDS: 0.9% Normal Saline 1,000 ML 100 ML IV (05:49)
[2021-05-22] MEDS: traMADol 50 MG Tablet 100 MG PO ×2 (05:49→13:32)
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
--- NOTE | 2021-05-22 09:10 | NURSING ---
Call made to [facility] to find out if they had seen pt yet. They reported that they did not have a consult for this patient. Information given for consult that was placed 05/[address] Ham. States they will be in contact shortly.
[2021-05-22] MEDS: Gabapentin 300 MG Capsule PO (10:57)
--- NOTE | 2021-05-22 11:11 | NURSING ---
Called [facility] for ETA on physician to see pt. States they have increased volume right now with emergent cases and will call with ETA when MD is assigned.
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
[2021-05-22 13:39] LABS: Cholesterol 259 mg/dL (200); High Density Lipoprotein 27 mg/dL; Triglycerides 320 mg/dL; Very Low Density Lipoprotein 64 mg/dL (5-40)
--- NOTE | 2021-05-22 14:04 | NURSING ---
Patient did not want to wait for baby ASA or Plavix, states he will take them at home. Discharge instructions thoroughly explained to pt and his Nancy.
== END 2021-05-22 14:00 | disposition home or self-care (01) | DRG 63 ==
LOC: ED 11:23 → ICU 11:47
PROVIDERS: Internal Medicine Critical Care Medicine; Admitting Provider Internal Medicine; Emergency Provider Emergency Medicine; PCP Family Medicine; Visit Provider Internal Medicine
DX: I63.9 Cerebral infarction, unspecified (principal); R47.01 Aphasia; F17.210 Nicotine dependence, cigarettes, uncomplicated; I10 Essential (primary) hypertension; F32.A Depression, unspecified; R47.81 Slurred speech; Z92.82 Status post administration of tPA (rtPA) in a different facility within the last 24 hours prior to admission to current facility; R29.703 NIHSS score 3; R20.0 Anesthesia of skin; Z79.899 Other long term (current) drug therapy; E66.9 Obesity, unspecified; Z68.30 Body mass index [BMI] 30.0-30.9, adult
CPT/HCPCS: 70450; 70496; 70498; 70551; 71045; 80048; 80061; 84484; 85025; 85610; 85730; 92523; 92610; 93005; 93306; 97161; 97166; 99285; 99406; J2997; J7030; Q9957; Q9967; A4216; C8929